=== PATIENT | female | born 1990 | race Caucasian/White ===

== ENCOUNTER 2020-11-08 16:02 | Emergency (ER) | payer OTHER, MEDICAID ==
[~2020-11-08] VITALS: Ht 175.3 cm; Wt 96.6 kg
[2020-11-08] MEDS ORDERED: LEXAPRO 10 MG T10 M2 (16:10)
[2020-11-08] MEDS ORDERED: SYNTHROID88 MC1 PO (16:10)
[2020-11-08 18:28] VITALS: BP 114/68
== END 2020-11-08 18:29 | disposition home or self-care (01) ==
LOC: M.ERS 16:02
DX: M79.632 Pain in left forearm (principal); Z98.51 Tubal ligation status; Z98.890 Other specified postprocedural states

== ENCOUNTER 2021-05-12 17:38 | Emergency (ER) | payer OTHER, MEDICAID ==
[~2021-05-12] VITALS: Ht 175.3 cm; Wt 90.7 kg
[~2021-05-12 17:38] MED LIST: LEXAPRO 10 MG T10 M2; SYNTHROID88 MC1 PO
[2021-05-12] MEDS ORDERED: BUSPIRONE HCL10 MG PO (18:25)
[2021-05-12] MEDS ORDERED: LEVO-T100 MCG PO (18:25)
[2021-05-12] MEDS ORDERED: NAPROSYN500 MG PO (21:23)
[2021-05-12] MEDS ORDERED: PREDNISONE 20 M20 MG PO (21:23)
[2021-05-12] MEDS ORDERED: BACTRIM DS TAB1 EACH PO (21:23)
[2021-05-12] MEDS ORDERED: TRIAMCINOLONE A15 GM TOP (21:24)
[2021-05-12 21:34] VITALS: BP 127/76
== END 2021-05-12 21:34 | disposition home or self-care (01) ==
LOC: M.ERS 17:38
DX: L01.00 Impetigo, unspecified (principal); Z98.890 Other specified postprocedural states; Z98.51 Tubal ligation status; Z79.899 Other long term (current) drug therapy